=== PATIENT | female | born 1995 ===

== ENCOUNTER 2017-01-10 03:15 | Emergency (ER) | payer OTHER ==
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
[2017-01-10 06:48] VITALS: BP 136/58
--- NOTE | 2017-01-10 07:30 | Diagnostic Imaging Report ---
[facility] [id number] [facility].[address] [address] Report Submission Date: Jan 10, 2017 4:16:03 AM SLOT EDITOR Patient Study Name: DILAN GARDNER Date: Jan 10, 2017 4:02:57 AM SLOT EDITOR Modality Type: CR Gender: F Description: UPPER EXTREMITY : 95 Institution: [facility] Physician: FIDEL GOLD Left wrist 3 views History: Pain after injury Findings: Mild scapholunate joint space widening is present without fracture or dislocation. The remaining left wrist is intact. Impression: Possible scapholunate ligament injury of uncertain chronicity. Electronically signed on Jan 10, 2017 4:16:03 AM SLOT EDITOR by: Kevin BRAY
== END 2017-01-10 04:45 | disposition home or self-care (01) ==
LOC: ED 03:15
DX: S63.302A Traumatic rupture of unspecified ligament of left wrist, initial encounter (principal); X58.XXXA Exposure to other specified factors, initial encounter; Y93.9 Activity, unspecified; Y99.9 Unspecified external cause status
CPT/HCPCS: 73110; L3908; 99283